=== PATIENT | male | born 1990 | race Caucasian/White ===

== ENCOUNTER 2019-09-28 18:12 | Emergency (ER) | payer OTHER ==
[2019-09-28] MEDS ORDERED: Lidocaine 1% MPF ** 5 ML VIAL INJ ONE (18:37)
[2019-09-28] MEDS ORDERED: Lidocaine 2% EPI 1:200000 MPF* 10 ML VIAL INJ ONE (18:46)
--- NOTE | 2019-09-28 18:50 | ED ---
Laceration/Wound HPI - HPI Summary HPI Summary: 29 year old male presents with scalp laceration today. He states he was doing a pull up and ended up striking his head. He states area continues to bleed. Tetanus up-to-date. Has no medical conditions. Denies any headache. He denies any nausea or vomiting. No neck pain. No other injury. Denies any change in vision. No loss consciousness. he is leaving the country on . - History of Current Complaint Stated Complaint: HEAD LACERATION Time Seen by Provider: 09/28/19 18:22 Pain Intensity: 1 - Allergy/Home Medications Allergies/Adverse Reactions: Allergies Allergy/AdvReac Type Severity Reaction Status Date / Time No Known Allergies Allergy Verified 09/28/19 18:20 PMH/Surg Hx/FS Hx/Imm Hx Infectious Disease History: No Infectious Disease History: Denies: Traveled Outside the [place] in Last 30 Days - Social History Alcohol Use: None Substance Use Type: Reports: None Smoking Status (MU): Never Smoked Tobacco Review of Systems Negative: Fever Negative: Chest Pain Negative: Shortness Of Breath Positive: Other - scalp laceration All Other Systems Reviewed And Are Negative: Yes Physical Exam Triage Information Reviewed: Yes Vital Signs On Initial Exam: Initial Vitals Temp Pulse Resp BP Pulse Ox 98.3 F 65 16 135/63 96 09/28/19 18:17 09/28/19 18:17 09/28/19 18:17 09/28/19 18:17 09/28/19 18:17 Vital Signs Reviewed: Yes Appearance: Positive: Well-Appearing Skin: Positive: Warm, Dry, Other - 4cm by 1cm laceration to scalp Head/Face: Positive: Normal Head/Face Inspection Eyes: Positive: Normal, EOMI, LILIYA, Conjunctiva Clear ENT: Positive: Normal ENT inspection, Pharynx normal, TMs normal Respiratory/Lung Sounds: Positive: Clear to Auscultation, Breath Sounds Present Cardiovascular: Positive: Normal, RRR Musculoskeletal: Positive: Normal Neurological: Positive: Sensory/Motor Intact, Alert, Oriented to Person Place, Time, CN Intact II-III Psychiatric: Positive: Normal Procedures - Sedation Patient Received Moderate/Deep Sedation with Procedure: No - Laceration/Wound Repair 1 Location: face Description: Linear Anesthesia: Local, 1.0%, Epi Length, Depth and Shape: 4cm by 1cm Irrigated w/ Saline (ccs): 300 Closure: Single Layer Number of Sutures: 5 Diagnostics - Vital Signs Vital Signs Temp Pulse Resp BP Pulse Ox 09/28/19 18:17 98.3 F 65 16 135/63 96 - Laboratory Lab Statement: Any lab studies that have been ordered have been reviewed, and results considered in the medical decision making process. Laceration Repair Course/Dx - Course Course Of Treatment: 29 year old male presents with scalp laceration today. He states he was doing a pull up and ended up striking his head. He states area continues to bleed. Tetanus up-to-date. Has no medical conditions. Denies any headache. He denies any nausea or vomiting. No neck pain. No other injury. Denies any change in vision. No loss consciousness. he is leaving the country on . On exam has a 4 cm x 1 cm laceration of the scalp. Cleaned area and placed [address] sutures due to patient leaving the country and may be unable to get a staple remover. Gave head injury precautions. Patient understands and agrees plan. - Differential Dx Differental Diagnoses: Abrasion, Avulsion, Laceration - Clinical Impression Provider Diagnoses: Scalp laceration Discharge ED - Sign-Out/Discharge Documenting (check all that apply): Patient Departure - Discharge Plan Condition: Good Disposition: HOME Patient Education Materials: Care For Your Stitches (ED) Referrals: No Primary Care Phys,NOPCP [Primary Care Provider] - Additional Instructions: Take Tylenol or ibuprofen for pain every 6 hours as needed Keep area clean and dry for 24 hours Return to ED or primary in 7-10 days to have sutures removed Return to ED if develop signs of infection such as fever, spreading redness, or pus. - Billing Disposition and Condition Condition: GOOD Disposition: Home - Attestation Statements Provider Attestation: I was available for consultation for this patient. I did not evaluate the patient, or participate in any medical decision making or disposition decisions unless I am specifically named in the chart as having consulted on the patient. If I have consulted on the patient, please see my own ED note on the patient encounter. Aaron Mojica MD
[2019-09-28] MEDS ORDERED: Lidocaine 2% w/ EPI 1:200,000* 20 ML SDV VIAL INJ ONE (19:00)
[2019-09-28 19:32] VITALS: BP 120/66
== END 2019-09-28 19:31 | disposition home or self-care (01) ==
LOC: ED 18:12
DX: S01.01XA Laceration without foreign body of scalp, initial encounter (principal); W22.8XXA Striking against or struck by other objects, initial encounter; Y93.B2 Activity, push-ups, pull-ups, sit-ups; Y92.9 Unspecified place or not applicable
CPT/HCPCS: 12002; 99281